=== PATIENT | male | born 1980 | race Caucasian/White ===

== ENCOUNTER 2019-08-16 14:55 | Emergency (ER) | payer SELFPAY ==
--- NOTE | 2019-08-16 15:12 | ER Document Report ---
ED Medical Screen (RME) - General Chief Complaint: Abdominal Pain Stated Complaint: ABDOMINAL PAIN Time Seen by Provider: 08/16/19 15:00 - HPI Notes: 08/16/19 15:07 38-year-old male presents emergency room for complaints of chest tightness where he states an "elephant is been sitting on his chest for the last 6 days as well as stabbing abdominal pain with nausea,vomiting and a headache for the last 6 days with diarrhea starting 2 days ago. Patient states he has not tried any [id number] medications for these issues. Denies any prior cardiac issues or chronic issues. Patient is a half a pack to a pack a day smoker. Denies any cardiac history on father mother side of the family. Patient is not sought out any medical care in the last 6 days with the symptoms. No recent travel outside of the country, no fevers chills. I have greeted and performed a rapid initial assessment of this patient. A comprehensive ED assessment and evaluation of the patient, analysis of test results and completion of the medical decision making process will be conducted by additional ED providers. PHYSICAL EXAMINATION: GENERAL: Well-appearing, well-nourished and in no acute distress. HEAD: Atraumatic, normocephalic. EYES: Pupils equal round extraocular movements intact, conjunctiva are normal. NECK: Normal range of motion CV: s1, s2 regular LUNGS: No respiratory distress abd: Epigastric tenderness - Related Data Allergies/Adverse Reactions: No Known Allergies Allergy (Verified 08/16/19 15:01) Past Medical History - Social History Frequency of alcohol use: Social Drug Abuse: Marijuana Physical Exam - Vital signs Vitals: Temp Pulse Resp BP Pulse Ox 98.2 F 110 H 18 143/81 H 99 08/16/19 14:59 08/16/19 14:59 08/16/19 14:59 08/16/19 14:59 08/16/19 14:59 Course - Vital Signs Vital signs: Temp Pulse Resp BP Pulse Ox 98.2 F 110 H 18 143/81 H 99 08/16/19 14:59 08/16/19 14:59 08/16/19 14:59 08/16/19 14:59 08/16/19 14:59
[2019-08-16 15:20] LABS: ABSOLUTE EOSINOPHILS # (AUTO) 0.1 10^3/uL (0.0-0.6); ABSOLUTE LYMPHOCYTES (AUTO) 1.6 10^3/uL (0.5-4.7); ABSOLUTE MONOCYTES (AUTO) 0.7 10^3/uL (0.1-1.4); BASOPHILS % (AUTO) 0.2 % (0-2); EOSINOPHILS % (AUTO) 0.6 % (0-6); HEMATOCRIT 47.2 % (37.9-51.0); HEMOGLOBIN 16.1 g/dL (13.5-17.0); LYMPHOCYTES % (AUTO) 11.9 % (13-45); MEAN CORPUSCULAR HEMOGLOBIN 30.7 pg (27.0-33.4); MEAN CORPUSCULAR VOLUME 90 fl (80-97); MONOCYTES % (AUTO) 5.6 % (3-13); PLATELET COUNT 224 10^3/uL (150-450); RED BLOOD COUNT 5.22 10^6/uL (4.35-5.55); RED CELL DISTRIBUTION WIDTH 14.1 % (11.5-14.0); SEGMENTED NEUTROPHILS % (AUTO) 81.7 % (42-78); TOTAL CELLS COUNTED % (AUTO) 100 %; WHITE BLOOD COUNT 13.4 10^3/uL (4.0-10.5)
[2019-08-16 15:38] LABS: ALBUMIN 5.1 g/dL (3.5-5.0); ALKALINE PHOSPHATASE 86 U/L (38-126); ANION GAP 13 (5-19); ASPARTATE AMINO TRANSFERASE 26 U/L (17-59); BILIRUBIN,DIRECT 0.3 mg/dL (0.0-0.4); BILIRUBIN,TOTAL 0.7 mg/dL (0.2-1.3); BLOOD UREA NITROGEN 10 mg/dL (7-20); CALCIUM 9.7 mg/dL (8.4-10.2); CARBON DIOXIDE 25 mmol/L (22-30); CHLORIDE 103 mmol/L (98-107); GLUCOSE 109 mg/dL (75-110); POTASSIUM 4.6 mmol/L (3.6-5.0); TOTAL PROTEIN 8.3 g/dL (6.3-8.2)
[2019-08-16] MEDS ORDERED: NORMAL SALINE 1000 ML 1,000 ML IV ONE (15:40)
--- NOTE | 2019-08-16 15:42 | RADIOLOGY REPORT (SQ) ---
EXAM DESCRIPTION: KUB/ABDOMEN (SINGLE VIEW) COMPLETED DATE/TIME: 08/16/2019 3:26 pm REASON FOR STUDY: n/v/d, abd pain x 6 days COMPARISON: None. NUMBER OF VIEWS: One view. TECHNIQUE: Supine radiographic image of the abdomen acquired. LIMITATIONS: None. FINDINGS: BOWEL GAS PATTERN: Normal bowel gas pattern. No dilated loops. CALCIFICATIONS: No suspicious calcifications. SOFT TISSUES: No gross mass or suggestion of organomegaly. HARDWARE: None in the abdomen. BONES: No acute fracture. No worrisome bone lesions. OTHER: No other significant finding. IMPRESSION: NO RADIOGRAPHIC EVIDENCE FOR ACUTE ABDOMINAL DISEASE. TECHNICAL DOCUMENTATION: JOB ID: [id number] 2010 [employer]- All Rights Reserved Reading location - IP/workstation name: [email or web address]
--- NOTE | 2019-08-16 15:42 | RADIOLOGY REPORT (SQ) ---
EXAM DESCRIPTION: CHEST SINGLE VIEW COMPLETED DATE/TIME: 08/16/2019 3:26 pm REASON FOR STUDY: chest tightness COMPARISON: None. EXAM PARAMETERS: NUMBER OF VIEWS: One view. TECHNIQUE: Single frontal radiographic view of the chest acquired. RADIATION DOSE: NA LIMITATIONS: None. FINDINGS: LUNGS AND PLEURA: No opacities, masses or pneumothorax. No pleural effusion. MEDIASTINUM AND HILAR STRUCTURES: No masses. Contour normal. HEART AND VASCULAR STRUCTURES: Heart normal in size. Normal vasculature. BONES: No acute findings. HARDWARE: None in the chest. OTHER: No other significant finding. IMPRESSION: NO ACUTE RADIOGRAPHIC FINDING IN THE CHEST. TECHNICAL DOCUMENTATION: JOB ID: [id number] 2010 [employer]- All Rights Reserved Reading location - IP/workstation name: [email or web address]
--- NOTE | 2019-08-16 15:47 | ER Document Report ---
ED GI/ - General Chief Complaint: Abdominal Pain Stated Complaint: ABDOMINAL PAIN Time Seen by Provider: 08/16/19 15:00 Notes: CHIEF COMPLAINT: Abdominal pain for 6 days, chest pain for 6 days HPI: 38-year-old male presenting to the emergency department complaining of upper abdominal pain as well as lower chest pressure for 6 days. States eating or drinking makes the discomfort worse. States when it began he did have one episode of nausea vomiting has otherwise not had vomiting. Occasional nausea. No diarrhea. Patient points to the upper abdomen as the site of his discomfort no prior history of similar discomfort. Reports a pressure sensation over the lower chest that is also been constant for 6 days. Patient has taken no me dications for his symptoms in the last week. Patient is a smoker, states he only drinks alcohol once a week. ROS: See HPI - all other systems were reviewed and are otherwise negative Constitutional: no fever Eyes: no drainage, no blurred vision ENT: no runny nose, no sore throat Cardiovascular: Positive chest pain Resp: no SOB, no cough GI: Positive vomiting, no diarrhea, positive abdominal pain : no dysuria Integumentary: no rash Allergy: no hives Musculoskeletal: no extremity pain or swelling Neurological: no numbness/tingling, no weakness MEDICATIONS: I agree with the patient medications as charted by the RN. ALLERGIES: I agree with the allergies as charted by the RN. PAST MEDICAL HISTORY/PAST SURGICAL HISTORY: Reviewed and agree as charted by RN. SOCIAL HISTORY: Reviewed and agree as charted by RN. FAMILY HISTORY: No significant familial comorbid conditions directly related to patient complaint EXAM: Reviewed vital signs as charted by RN. CONSTITUTIONAL: Alert and oriented and responds appropriately to questions. Well-appearing; well-nourished, mild distress secondary to discomfort HEAD: Normocephalic; atraumatic EYES: PERRL; Conjunctivae clear, sclerae non-icteric ENT: normal nose; no rhinorrhea; moist mucous membranes; pharynx without lesions noted, no uvula edema or deviation, no tonsillar hypertrophy, phonation normal NECK: Supple without meningismus; non-tender; no cervical lymphadenopathy, no masses CARD: Mild tachycardia; no murmurs, no clicks, no rubs, no gallops; symmetric distal pulses RESP: Normal chest excursion without splinting or tachypnea; breath sounds clear and equal bilaterally; no wheezes, no rhonchi, no rales, pulse oximetry 99% on room air not hypoxic ABD/GI: Normal bowel sounds; non-distended; soft, mild tenderness to the epigas tric and right upper quadrant region on palpation, no rebound, no guarding; no palpable organomegaly or masses. BACK: The back appears normal and is non-tender to palpation, there is no CVA tenderness EXT: Normal ROM in all joints; non-tender to palpation; no cyanosis, no effusions, no edema SKIN: Normal color for age and race; warm; dry; good turgor; no acute lesions noted NEURO: Moves all extremities equally; Motor and sensory function intact PSYCH: The patient's mood and manner are appropriate. Grooming and personal hygiene are appropriate. MDM: 38-year-old male presenting for upper abdominal pain and chest discomfort for 6 days both constant over that timeframe. Patient is fairly low risk for ACS, he does have a smoking history, heart score prior to troponin resulting is 2 for risk factors and tachycardia on EKG. Patient has tenderness that is reproducible in nature in the upper abdomen, may be cholelithiasis cholecystitis, obstructive. Patient surgical history includes inguinal hernia repair. Chest x-ray on my review does not show acute findings. KUB shows some mildly dilated loops of bowel in the upper abdomen. Will obtain CT initially given the findings for further evaluation - Related Data Allergies/Adverse Reactions: No Known Allergies Allergy (Verified 08/16/19 15:01) Past Medical History - Social History Smoking Status: Current Every Day Smoker Frequency of alcohol use: Social Drug Abuse: Marijuana Family History: Reviewed & Not Pertinent Patient has suicidal ideation: No Patient has homicidal ideation: No Physical Exam - Vital signs Vitals: Temp Pulse Resp BP Pulse Ox 98.2 F 110 H 18 143/81 H 99 08/16/19 14:59 08/16/19 14:59 08/16/19 14:59 08/16/19 14:59 08/16/19 14:59 Course - Re-evaluation Re-evalutation: 08/16/19 16:36 No acute findings on CT, x-ray, lab results. Differential is still large but does not likely include cholecystitis, troponin negative, 1 set obtained given 6 days of discomfort I think is likely coming from the upper abdominal discomfort. Gastritis would be more likely to be in the differential. Will place patient on Protonix, refer to GI for follow-up - Vital Signs Vital signs: Temp Pulse Resp BP Pulse Ox 98.2 F 110 H 18 143/81 H 99 08/16/19 14:59 08/16/19 14:59 08/16/19 14:59 08/16/19 14:59 08/16/19 14:59 - Laboratory Result Diagrams: 08/16/19 15:10 08/16/19 15:10 Laboratory results interpreted by me: 08/16/19 08/16/19 15:10 15:10 WBC 13.4 H RDW 14.1 H Lymph % (Auto) 11.9 L Absolute Neuts (auto) 11.0 H Seg Neutrophils % 81.7 H Total Protein 8.3 H Albumin 5.1 H Lipase 20.2 L Discharge - Discharge Clinical Impression: Abdominal pain, epigastric Chest pain Qualifiers: Chest pain type: other chest pain Qualified Code(s): R07.89 - Other chest pain; R07.8 - Other chest pain Condition: Stable Disposition: HOME, SELF-CARE Additional Instructions: Take the medications as prescribed avoid smoking or drinking alcohol. Your lab work did not show any acute emergent abnormalities. Your CT imaging did not show any acute findings to definitively explain your discomfort. This may be gastritis or an inflammation in the stomach lining. Take the Protonix as prescribed and follow-up closely with both your primary care provider and gastroenterology for further evaluation and treatment. Prescriptions: Pantoprazole Sodium [Protonix [address] Tablet] 20 mg PO DAILY #30 tablet. Referrals: JOJO HO MD [ACTIVE STAFF] - Follow up as needed
--- NOTE | 2019-08-16 15:53 | EKG REPORT ---
SEVERITY:- ABNORMAL ECG - SINUS TACHYCARDIA MARVIN, CONSIDER BIATRIAL ABNORMALITIES : Confirmed by: Maricruz Rose MD 16-Aug-2019 15:53:08
--- NOTE | 2019-08-16 16:28 | RADIOLOGY REPORT (SQ) ---
EXAM DESCRIPTION: CT ABD/PELVIS WITH IV ONLY COMPLETED DATE/TIME: 08/16/2019 4:03 pm REASON FOR STUDY: upper abd pain COMPARISON: None. TECHNIQUE: CT scan of the abdomen and pelvis performed using helical scanning technique with dynamic intravenous contrast injection. No oral contrast. Images reviewed with lung, soft tissue, and bone windows. Reconstructed coronal and sagittal MPR images reviewed. Delayed images for evaluation of the urinary system also acquired. All images stored on PACS. All CT scanners at this facility use dose modulation, iterative reconstruction, and/or weight based d osing when appropriate to reduce radiation dose to as low as reasonably achievable (ALARA). [facility]: Dose Right [facility]: CareDose [facility]: Dose Right [facility]: Teradose 4D [facility]: [place] CONTRAST TYPE AND DOSE: contrast/concentration: Isovue 350.00 mg/ml; Total Contrast Delivered: 100.0 ml; Total Saline Delivered: 72.0 ml RENAL FUNCTION: GFR > 60. RADIATION DOSE: CT Rad equipment meets quality standard of care and radiation dose reduction techniq ues were employed. CTDIvol: 9.0 - 12.6 mGy. DLP: 1234 mGy-cm.. LIMITATIONS: None. FINDINGS: LOWER CHEST: No significant findings. No nodules or infiltrates. LIVER: Normal size. No masses. No dilated ducts. SPLEEN: Normal size. No focal lesions. PANCREAS: No masses. No significant calcifications. No adjacent inflammation or peripancreatic fluid collections. Pancreatic duct not dilated. GALLBLADDER: No identified stones by CT criteria. No inflammatory changes to suggest cholecystitis. ADRENAL GLANDS: No significant masses or asymmetry. RIGHT KIDNEY AND URETER: No solid masses. No significant calcifications. No hydronephrosis or hyd roureter. LEFT KIDNEY AND URETER: No solid masses. No significant calcifications. No hydronephrosis or hydr oureter. AORTA AND VESSELS: No aneurysm. No dissection. Renal arteries, SMA, celiac without stenosis. RETROPERITONEUM: No retroperitoneal adenopathy, hemorrhage or masses. BOWEL AND PERITONEAL CAVITY: No masses or inflammatory changes. No free fluid or peritoneal masses. APPENDIX: Normal. PELVIS: No mass. No free fluid. Normal bladder. ABDOMINAL WALL: No masses. No hernias. BONES: No significant or acute findings. OTHER: No other significant finding. IMPRESSION: NO SIGNIFICANT OR ACUTE FINDING IN THE ABDOMEN OR PELVIS ON CT SCAN WITH IV CONTRAST. TECHNICAL DOCUMENTATION: JOB ID: [id number] Quality ID # [id number]: Final reports with documentation of one or more dose reduction techniques (e.g., Au tomated exposure control, adjustment of the mA and/or kV according to patient size, use of iterative reconstruction technique) 2010 [employer]- All Rights Reserved Reading location - IP/workstation name: [email or web address]
[2019-08-16] MEDS ORDERED: PANTOPRAZOLE SODIUM 20 MG TABLET.DR PO ONE (16:39)
[2019-08-16 16:51] VITALS: BP 150/98
== END 2019-08-16 16:53 | disposition home or self-care (01) ==
LOC: ER 14:55
DX: R10.13 Epigastric pain (principal); R07.89 Other chest pain; R11.0 Nausea; R10.816 Epigastric abdominal tenderness; R10.811 Right upper quadrant abdominal tenderness; R00.0 Tachycardia, unspecified; F17.200 Nicotine dependence, unspecified, uncomplicated
CPT/HCPCS: 93005; 99284; 96360; 36415; 80307; 83690; 84443; 85025; 80053; 84484; 71045; 74018; 74177; 93010; J7030; J3490